=== PATIENT | female | born 1945 | race Caucasian/White ===

== ENCOUNTER 2017-05-30 06:26 | Inpatient (IN) ==
[~2017-05-30 06:26] MED LIST: ACETAMINOPHEN 500 MG TABLET PO ONE; FAMOTIDINE PB 20 MG/50 ML BAG IV ONE; LIDOCAINE 1% (10mg/ml) 2mL INJ PF SDV ID ONE; METOCLOPRAMIDE 10mg/2ml INJECTION IVP ONE; NOZIN NASAL SWAB NAS ONE; ONDANSETRON 4 MG/2 ML INJECTION IVP ONE
--- OUTSIDE RECORDS SUMMARY | 2017-05-30 06:37 | External Medical Summary ---
:1945 Author Organization [employer] Care Team Providers Name Role Phone Erwin Baez Provider Role Unavailable Allergies, Adverse Reactions, Alerts Substance Reaction Event Type N.K.D.A. 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 Problem Dyspnea on exertion 786.09 Active Problem Fatigue 780.79 Active Problem S/P Pacemaker Placement - Dual V45.01 Active Assessment CAD 414.01 Active Problem Atrial fibrillation 427.31 Active Assessment Atrial fibrillation 427.31 Active Assessment S/P Pacemaker Placement - Dual V45.01 Active Problem CAD 414.01 Active Problem Diabetes Mellitus, Type II, 250.00 Active Controlled Problem Palpitations 785.1 Active Problem Hypertension 401.9 Active Problem Dyslipidemia 272.4 Active Assessment Diabetes Mellitus, Type II, 250.00 Active Controlled Assessment Dyslipidemia 272.4 Active Assessment Family history of stroke V17.1 Active (cerebrovascular) Assessment Family history of ischemic heart V17.3 Active disease Problem Dizziness 780.4 Active Problem Chest pain 786.50 Active Assessment Hypertension 401.9 Active Problem Family history of stroke V17.1 Active (cerebrovascular) Assessment 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 Problem Family history of ischemic heart V17.3 Active disease Medications Medication Code Code Instructions Start End Date Status D[place] [address]-92 20 MG Orally qd 1 cap 11-01 Calcium + D NDC 77103-61 Orally bid 1 tab 56-52 Vitamin C NDC 21829-51 100 MG Orally qd 1 tab 54-01 Warfarin Sodium NDC 12719-81 5 MG Orally qd as dir 05-01 GlipiZIDE NDC 38361-98 5 MG Orally qd 1 tab 49-00 Sertraline HCl NDC 74075-63 100 MG Orally qd 1 tablet 80-05 Aspirin NDC 19068-05 81 MG Orally qd 1 tab 16-78 [place] [address]-38 20 MG Orally qd 1 tab 68-01 [place] [address]-88 40 MG Orally qd 1 tab Calcium 21-05 Sotalol HCl NDC 91272-49 160 MG Orally 1 tab 62-01 bid Metformin HCl NDC 37301-55 500 MG Orally 2 tab 48-01 bid Magnesium NDC 04569-73 400 MG Orally 1 tab 576 bid Cartia XT NDC 46074-21 240 MG Orally 1 capsule 29-90 Once a day Procedures Procedure Coding System Code Date Office Visit, Est Pt., Level 3 CPT-4 39931 January 07, 2015 Ofc Program PM Dual, Device Company CPT-4 91572 January 07, 2015 Vital Signs Date/Time: January 07, 2015 BMI 35.15 Index Weight 217.8 lbs Height 5 ft 6 in in Cardiac Monitoring Heart Rate 81 /min Oximetry 98 % Blood Pressure Diastolic 70 mm Hg Blood Pressure Systolic 114 mm Hg Results No Known Results Summary Purpose [employer] Submission
--- OUTSIDE RECORDS SUMMARY | 2017-05-30 06:37 | External Medical Summary ---
:1945 Author Organization [employer] Care Team Providers Name Role Phone Erwin Baez Provider Role Unavailable Allergies No Known Allergies Problems Problem Type Condition Code Onset Dates Condition Status Problem Hypertension 401.9 Active Problem S/P Pacemaker Placement - Dual V45.01 Active Problem Atrial fibrillation 427.31 Active Problem Dyslipidemia E78.5 Active Problem Episodic atrial fibrillation I48.0 Active Problem Hypertension I10 Active Problem S/P cardiac pacemaker procedure Z95.0 Active Problem CAD 414.01 Active Problem Elian-tachy syndrome I49.5 Active Problem Dizziness R42 Active Problem Family history of stroke V17.1 Active (cerebrovascular) Problem Family history of ischemic heart V17.3 Active disease Problem Dizziness 780.4 Active Problem Chest pain 786.50 Active Problem Dyspnea on exertion 786.09 Active Problem Palpitations 785.1 Active Problem 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
--- OUTSIDE RECORDS SUMMARY | 2017-05-30 06:37 | External Medical Summary ---
:1945 Author Organization [facility]. Summary purpose CCDA Sent to [facility] Chief Complaint and Reason for Visit Admit Diagnosis 1 715.15 Problem list No authorized problems tracked for continuity of care are available for this visit. Encounters No authorized problems tracked for encounter diagnoses are available for this visit. Medications No medications recorded for this patient visit Allergies, adverse reactions, alerts Allergen Category Ingredient Status Reaction Severity Onset No Known Drug No Known Drug No Known Drug Active Allergy Allergy Allergy Immunizations No immunizations recorded for this patient visit Relevant diagnostic tests and/or laboratory data No authorized results are available for this patient visit History of procedures No procedures recorded for this patient visit. Functional status No functional or cognitive status observations are available for this visit. Vital signs No authorized vital signs are available for this visit. Social history No Social History or smoking status observations were recorded for this visit. ( Unknown if ever smoked.) Treatment Plan No treatment plan text is available for this visit. Hospital discharge instructions No discharge instruction text is available for this visit.
--- OUTSIDE RECORDS SUMMARY | 2017-05-30 06:38 | External Medical Summary | Continuity of Care Document ---
:1945 Author Organization [facility] Allergies Active Description Code Type Severity Reaction Onset Reported/ Identified Relationship Clinical to Patient Status Yes No Known 28457 ND N/A N/A 06/05/2012 Drug Allergy 590 Medications Problems Date Dx Attending Type Code Diagnosis Diagnosed By Coded 07/07/2010 D 427.31 ATRIAL FIBRILLATION 10/06/2010 D 250.00 DM2/NOS UNCOMP NSU 10/06/2010 D 401.1 BENIGN HYPERTENSION 10/06/2010 D 427.31 ATRIAL FIBRILLATION 03/23/2011 D 272.0 PURE HYPERCHOLESTEROLEM 05/11/2011 D 272.0 PURE HYPERCHOLESTEROLEM 11/30/2011 D 427.31 ATRIAL FIBRILLATION 06/06/2012 D 174.9 MALIGN NEOPL BREAST NOS 06/06/2012 D 250.00 DM2/NOS UNCOMP NSU 06/06/2012 D 401.9 HYPERTENSION NOS 06/06/2012 D 427.31 ATRIAL FIBRILLATION 06/19/2012 D 785.1 PALPITATIONS 07/05/2012 D 427.31 ATRIAL FIBRILLATION 07/05/2012 D E942.1 ADV EFF CARDIOTONICS 07/14/2012 D 250.00 DM2/NOS UNCOMP NSU 07/14/2012 D 272.0 PURE HYPERCHOLESTEROLEM 07/14/2012 D 401.9 HYPERTENSION NOS 07/14/2012 D 427.81 SINOATRIAL NODE DYSFUNCT 07/14/2012 D 427.89 CARDIAC DYSRHYTHMIAS NEC 07/14/2012 Sasha SOL, Erwin Sanchez 250.00 DIAB DEEPIKA WO COMPL, TYPE K II OR UNSPEC TYPE, NOT UN 07/14/2012 Sasha SOL, Erwin Sanchez 272.4 HYPERLIPIDEMIA NEC/NOS K 07/14/2012 Sasha SOL, Erwin Sanchez 401.9 HYPERTENSION NOS K 07/14/2012 Sasha SOL, Erwin Sanchez 427.81 SINOATRIAL NODE DYSFUNCT K 07/14/2012 Sasha SOL, Erwin Ames 427.89 CARDIAC DYSRHYTHMIAS NEC K 07/14/2012 Erwin Baez MD 593.9 RENAL URETERAL DIS NOS K 07/14/2012 Erwin Baez MD 786.50 CHEST PAIN NOS K 07/14/2012 Erwin Baez MD V03.82 PROPHYLACTIC VACC K AGAINST STREPTOCOCCUS PNEUMONIAE 07/14/2012 Erwin Baez MD V10.3 HX OF BREAST MALIGNANCY K 11/27/2012 ARGENTINA Walters 250.00 DM2/NOS UNCOMP NSU , LIZY R 09/01/2013 ARGENTINA Walters 790.6 ABN BLOOD CHEMISTRY NEC , LIZY Locke 09/10/2013 ARGENTINA Waltres 211.3 BENIGN NEOPLASM LG BOWEL RANDI SOL 09/10/2013 ARGENTINA Walters V76.51 SCREENING MAL OLIVIA COLON RANDI SOL 10/23/2013 ARGENTINA ESPINOZA D 427.31 ATRIAL FIBRILLATION LIZY SOL 11/24/2013 ARGENTINA Walters 427.31 ATRIAL FIBRILLATION LIZY SOL 05/12/2014 ARGENTINA Walters 427.31 ATRIAL FIBRILLATION LIZY SOL 06/02/2014 ARGENTINA Walters 427.31 ATRIAL FIBRILLATION LIZY SOL 12/09/2014 ARGENTINA Walters 401.9 HYPERTENSION NOS LIZY SOL 12/09/2014 ARGENTINA ESPINOZA D 790.6 ABN BLOOD CHEMISTRY NEC LIZY SOL 09/29/2015 ARGENTINA Walters M79.604 Pain in right leg LIZY SOL 09/29/2015 ARGENTINA Ames M79.605 Pain in left leg LIZY SOL 04/13/2016 ARGENTINA Walters I10 Essential (primary) LIZY SOL hypertension 04/13/2016 ARGENTINA Walters M25.852 Other specified joint LIZY SOL disorders, left hip 04/13/2016 ARGENTINA Walters Z01.818 Encounter for other LIZY SOL preprocedural examination 04/30/2016 Romeo LEIGH Z47.1 Aftercare following NANCY S joint replacement surgery 04/30/2016 Romeo LEIGH Z96.642 Presence of left NANCY S artificial hip joint 04/30/2016 YANET TAVERA MD M13.852 Other specified S arthritis, left hip 04/30/2016 YANET TAVERA MD M25.552 Pain in left hip S 04/30/2016 YANET TAVERA MD M62.81 Muscle weakness S (generalized) 04/30/2016 YANET TAVERA MD Z47.1 Aftercare following S joint replacement surgery 04/30/2016 YANET TAVERA MD Z96.642 Presence of left S artificial hip joint 05/01/2016 ARGENTINA Walters I10 Essential (primary) , LIZY Locke hypertension 05/01/2016 ARGENTINA Walters I48.2 Chronic atrial , LIZY Locke fibrillation 05/01/2016 ARGENTINA Walters R23.1 Pallor LIZY SOL 05/30/2016 YANET TAVERA MD M13.852 Other specified S arthritis, left hip 05/30/2016 YANET TAVERA MD M25.552 Pain in left hip S 05/30/2016 YANET TAVERA MD M62.81 Muscle weakness S (generalized) 05/30/2016 YANET TAVERA MD Z47.1 Aftercare following S joint replacement surgery 05/30/2016 YANET TAVERA MD Z96.642 Presence of left S artificial hip joint 06/30/2016 YANET TAVERA MD M13.852 Other specified S arthritis, left hip 06/30/2016 YANET TAVERA MD M25.552 Pain in left hip S 06/30/2016 YANET TAVERA MD M62.81 Muscle weakness S (generalized) 06/30/2016 YANET TAVERA MD Z47.1 Aftercare following S joint replacement surgery 06/30/2016 YANET TAVERA MD Z96.642 Presence of left S artificial hip joint 11/01/2016 ARGENTINA Walters D64.9 Anemia, unspecified , LIZY Locke 02/15/2017 ARGENTINA Walters E83.42 Hypomagnesemia LIZY SOL Procedures Code Description Performed By Performed On ASSAY OF ARGENTINA ESPINOZA MD, 07/07/2010 00977 DIGOXIN LIZY Locke ROUTINE ARGENTINA ESPINOZA MD, 10/06/2010 54114 VENIPUNCTURE LIZY ESPINOZA MD, 10/06/2010 41546 METABOLIC PANEL TOTAL CA LIZY R ASSAY OF ARGENTINA ESPINOZA MD, 10/06/2010 46586 DIGOXIN LIZY R ARG[place] ESPINOZA MD, 10/06/2010 64558 GLYCOSYLATED HEMOGLOBIN TEST LIZY R ARGENTINA ESPINOZA MD, 10/06/2010 50534 PROTHROMBIN TIME LIZY R HEPATIC ARGENTINA ESPINOZA MD, 03/23/2011 02505 FUNCTION PANEL LIZY R HEPATIC ARGENTINA ESPINOZA MD, 05/11/2011 98251 FUNCTION PANEL LIZY R ARGENTINA ESPINOZA MD, 11/30/2011 14108 METABOLIC PANEL TOTAL CA LIZY R ASSAY OF ARGENTINA ESPINOZA MD, 11/30/2011 08136 DIGOXIN SERGIO VALDES MD 06/05/2012 55731 COMPREHEN METABOLIC PANEL ASSAY OF SERGIO ARANDA MD 06/05/2012 59913 DIGOXIN SERGIO ARANDA MD 06/05/2012 64887 CREATINE, MB FRACTION ASSAY ARGENTINA ESPINOZA MD, 06/05/2012 51811 THYROID STIM HORMONE LIZY R ASSAY OF SERGIO ARANDA MD 06/05/2012 96655 TROPONIN, QUANT COMPLETE SERGIO ARANDA MD 06/05/2012 35046 CBC, AUTOMATED SERGIO ARANDA MD 06/05/2012 36771 PROTHROMBIN TIME SERGIO ARANDA MD 06/05/2012 38001 ELECTROCARDIOGRAM, TRACING ARGENTINA ESPINOZA MD, 06/05/2012 66862 EMERGENCY DEPT VISIT [facility] ARGENTINA ESPINOZA MD, 06/05/2012 G0378 OBSERVATION PER HR LIZY R ASSAY OF ARGENTINA ESPINOZA MD, 06/06/2012 12299 TROPONIN, QUANT LIZY R BRUNILDA ADAMS, 06/19/2012 58160 METABOLIC PANEL TOTAL CA LUDY ASSAY OF BRUNILDA ADAMS, 06/19/2012 44882 DIGOXIN LUDY ASSAY OF BRUNILDA ADAMS, 06/19/2012 10623 FREE THYROXINE LUDY ASSAY BRUNILDA ADAMS, 06/19/2012 18387 THYROID STIM HORMONE LUDY ROUTINE LISANDRO MERRITT N 07/04/2012 72404 VENIPUNCTURE LISANDRO MERRITT 07/04/2012 83632 COMPREHEN METABOLIC PANEL ASSAY OF ERNESTO ADAMS LISANDRO N 07/04/2012 75595 DIGOXIN ASSAY OF ERNESTO ADAMS LISANDRO N 07/04/2012 69901 MAGNESIUM ASSAY ERNESTO ADAMS LISANDRO N 07/04/2012 22445 THYROID STIM HORMONE ASSAY OF ERNESTO PA, LISANDRO N 07/04/2012 05315 TROPONIN, QUANT COMPLETE ERNESTO PA, LISANDRO N 07/04/2012 25334 CBC, AUTOMATED ERNESTO ADAMS LISANDRO N 07/04/2012 55930 PROTHROMBIN TIME ERNESTO ADAMS LISANDRO N 07/04/2012 02458 ELECTROCARDIOGRAM, TRACING ARGENTINA ESPINOZA MD, 07/04/2012 10031 EMERGENCY DEPT VISIT [facility] ARGENTINA ESPINOZA MD, 07/04/2012 G0378 OBSERVATION PER HR RANDI ESPINOZA MD, 07/05/2012 23843 METABOLIC PANEL TOTAL CA RANDI D ASSAY OF ARGENTINA ESPINOZA MD, 07/05/2012 71945 DIGOXIN RANDI D ASSAY OF ARGENTINA ESPINOZA MD, 07/05/2012 90068 TOTAL THYROXINE RANDI D ASSAY, ARGENTINA ESPINOZA MD, 07/05/2012 52972 TRIIODOTHYRONINE (T3) RANDI D ASSAY OF ARGENTINA ESPINOZA MD, 07/05/2012 32709 TROPONIN, QUANT [facility] ARGENTINA ESPINOZA MD, 07/05/2012 40991 ELECTROCARDIOGRAM, TRACING DALE Romeo ESPINOZA MD, 07/14/2012 61438 EMERGENCY DEPT VISIT LIZY Locke LEFT Erwin Baez MD 07/14/2012 37.22 HEART CARDIAC CATH INITIAL Erwin Baez MD 07/14/2012 37.72 INSERT TRANS LEADS INTO ATRIUM VENTRICLE Erwin Neff MD 07/14/2012 37.83 INSERTION OF DUAL-CHAMBER DEVICE LT HEART Erwin Baez MD 07/14/2012 88.53 ANGIOCARDIOGRAM CORONAR Erwin Baez MD 07/14/2012 88.56 ARTERIOGR-2 CATH ASSAY ARGENTINA ESPINOZA MD, 11/27/2012 45857 THYROID STIM HORMONE LIZY R ASSAY OF ARGENTINA ESPINOZA MD, 09/01/2013 24712 MAGNESIUM LIZY R LESION ARGENTINA ESPINOZA MD, 09/10/2013 40038 REMOVE COLONOSCOPY RANDI Walters FENTANYL ARGENTINA ESPINOZA MD, 09/10/2013 J3010 CITRATE INJECITON RANDI ESPINOZA MD, 10/23/2013 54180 PROTHROMBIN TIME LIZY R ARGENTINA ESPINOZA MD, 11/24/2013 96322 PROTHROMBIN TIME LIZY R ARGENTINA ESPINOZA MD, 05/12/2014 03480 PROTHROMBIN TIME LIZY R ARGENTINA ESPINOZA MD, 06/02/2014 91847 PROTHROMBIN TIME LIZY R ARGENTINA ESPINOZA MD, 12/09/2014 22875 METABOLIC PANEL TOTAL CA LIZY R ASSAY OF ARGENTINA ESPINOZA MD, 12/09/2014 73167 MAGNESIUM LIZY R PT ARGENTINA ESPINOZA MD, 09/12/2015 20457 EVALUATION LIZY R ARGENTINA ESPINOZA MD, 09/12/2015 11397 ULTRASOUND THERAPY LIZY R ARGENTINA ESPINOZA MD, 09/12/2015 51452 THERAPEUTIC EXERCISES LIZY R ELEC ARGENTINA ESPINOZA MD, 09/12/2015 G0283 STIM OTHER THAN WOUND LIZY R ARGENTINA ESPINOZA MD, 04/13/2016 07982 COMPREHEN METABOLIC PANEL LIZY R COMPLETE ARGENTINA ESPINOZA MD, 04/13/2016 85802 CBC, AUTOMATED LIZY R ROUTINE NANCY LEIGH S 04/27/2016 39789 VENIPUNCTURE NANCY LEIGH S 04/27/2016 26594 PROTHROMBIN TIME YANET TAVERA MD 04/27/2016 46084 THER/PROPH/DIAG INJ, SC/IM ARGENTINA ESPINOZA MD, 04/27/2016 J1650 ENOXAPARIN NA INJ LIZY R ROUTINE NANCY LEIGH S 04/28/2016 75669 VENIPUNCTURE NANCY LEIGH S 04/28/2016 63408 PROTHROMBIN TIME YANET TAVERA MD 04/28/2016 29119 THER/PROPH/DIAG INJ, SC/IM YANET TAVERA MD 04/28/2016 J1650 ENOXAPARIN NA INJ PT YANET TAVERA MD 04/28/2016 06818 EVALUATION YANET TAVERA MD 04/28/2016 88234 THERAPEUTIC EXERCISES YANET TAVERA MD 04/29/2016 41586 THER/PROPH/DIAG INJ, SC/IM ARGENTINA ESPINOZA MD, 04/29/2016 J1650 ENOXAPARIN NA INJ LIZY Locke ROUTINE LIANG SOL, YANET Cerda 04/30/2016 61148 VENIPUNCTURE LIANG SOL, YANET Cerda 04/30/2016 72913 PROTHROMBIN TIME LIANG SOL, YANET Cerda 04/30/2016 18327 THER/PROPH/DIAG INJ, SC/IM ARGENTINA ESPINOZA MD, 04/30/2016 J1650 ENOXAPARIN NA INJ LIZY TAVERA MD, YANET Cerda 04/30/2016 52435 THERAPEUTIC EXERCISES MELANY TAVERA MD, YANET Cerda 04/30/2016 05235 TRAINING THERAPY ARGENTINA ESPINOZA MD, 05/01/2016 79032 METABOLIC PANEL TOTAL CA LIZY Locke COMPLETE ARGENTINA ESPINOZA MD, 05/01/2016 46759 CBC, AUTOMATED LIZY ESPINOZA MD, 05/01/2016 15999 PROTHROMBIN TIME LIZY TAVERA MD, YANET Cerda 05/07/2016 55077 THERAPEUTIC EXERCISES MELANY TAVERA MD, YANET Cerda 05/07/2016 15655 TRAINING THERAPY LIANG SOL, YANET Cerda 05/10/2016 59723 THERAPEUTIC EXERCISES MELANY TAVERA MD, YANET Cerda 05/10/2016 40629 TRAINING THERAPY LIANG SOL, YANET Cerda 05/15/2016 57056 THERAPEUTIC EXERCISES MELANY TAVERA MD, YANET Cerda 05/15/2016 47355 TRAINING THERAPY LIANG SOL, YANET Cerda 05/15/2016 01854 THERAPEUTIC ACTIVITIES LIANG SOL, YANET Cerda 05/17/2016 58903 THERAPEUTIC EXERCISES MELANY TAVERA MD, YANET Cerda 05/17/2016 96935 TRAINING THERAPY LIANG SOL, YANET Cerda 05/22/2016 73978 THERAPEUTIC EXERCISES MELANY TAVERA MD, YANET Cerda 05/22/2016 14110 TRAINING THERAPY LIANG SOL, YANET Cerda 05/22/2016 03278 THERAPEUTIC ACTIVITIES LIANG SOL, YANET Cerda 05/25/2016 76732 THERAPEUTIC EXERCISES MELANY TAVERA MD, YANET Cerda 05/25/2016 29324 TRAINING THERAPY LIANG SOL, YANET Cerda 05/25/2016 83234 THERAPEUTIC ACTIVITIES LIANG SOL, YANET Cerda 05/29/2016 65728 THERAPEUTIC EXERCISES MELANY TAVERA MD, YANET Cerda 05/29/2016 05842 TRAINING THERAPY LIANG SOL, YANET Cerda 05/29/2016 32147 THERAPEUTIC ACTIVITIES LIANG SOL, YANET Cerda 05/31/2016 45564 THERAPEUTIC EXERCISES MELANY TAVERA MD, YANET Cerda 05/31/2016 84683 TRAINING THERAPY LIANG SOL, YANET Cerda 06/05/2016 12763 THERAPEUTIC EXERCISES MELANY TAVERA MD, YANET Cerda 06/05/2016 73318 TRAINING THERAPY LIANG SOL, YANET Cerda 06/07/2016 15884 THERAPEUTIC EXERCISES MELANY TAVERA MD, YANET Cerda 06/07/2016 40697 TRAINING THERAPY LIANG SOL, YANET Cerda 06/12/2016 03153 THERAPEUTIC EXERCISES MELANY TAVERA MD, YANET Cerda 06/12/2016 98208 TRAINING THERAPY MELANY TAVERA MD, YANET Cerda 06/14/2016 02642 TRAINING THERAPY COMPLETE ARGENTINA ESPINOZA MD, 11/01/2016 77715 CBC, AUTOMATED LIZY Locke ASSAY OF ARGENTINA ESPINOZA MD, 02/15/2017 99444 MAGNESIUM LIZY Locke Encounters ACCT No. Visit Discharge Status Pt. Type Provider Facility Loc./Unit Complaint Date/Time [id number] 07/14/2012 07/18/2012 DIS Inpatient Sasha SOL, Seun [id number] [id number] 21:30:00 19:12:00 [facility] [id number] 05/14/2017 05/14/2017 DIS Outpatien ULLOM [place] LAB 14:00:00 14:00:00 shy Lawson MD, [facility] R [id number] 02/15/2017 02/15/2017 DIS Outpatien ULLOM [place] ALAB 11:02:00 11:02:00 shy Lawson MD, [facility] R [id number] 01/18/2017 01/18/2017 DIS Outpatien ULLOM [place] ALAB 12:53:00 12:53:00 shy Lawson MD, [facility] R [id number] 11/02/2016 11/02/2016 DIS Outpatien ULLOM [place] ALAB 07:38:00 07:38:00 shy Lawson MD, [facility] R [id number] 07/01/2016 07/31/2016 DIS Regina TAVERA MD, 8 00:01:00 23:59:00 shy Cerda [id number] 05/31/2016 06/30/2016 DIS Regina TAVERA MD, 0 00:01:00 23:59:00 t YANET Cerda [id number] 05/01/2016 05/30/2016 DIS Outpatien LIANG SOL, 2 00:01:00 23:59:00 t YANET Cerda [id number] 05/01/2016 05/01/2016 DIS Outpatien ULLOM [place] ALAB 13:13:00 13:13:00 shy Lawson MD, [facility] R [id number] 05/01/2016 05/01/2016 CAN Outpatien ZERGER [facility] [facility] 7 00:01:00 00:01:[facility] [id number] 04/28/2016 04/30/2016 DIS Outpatien LIANG SOL, 4 13:56:00 23:59:00 t YANET Cerda [id number] 04/27/2016 04/30/2016 DIS Outpatien ZERGER [facility] 9 09:24:00 23:59:00 [facility] [id number] 04/27/2016 04/27/2016 DIS Outpatien LIANG SOL, [place] ALAB 09:53:00 09:53:00 shy [facility] [id number] 04/13/2016 04/13/2016 DIS Outpatien ULLOM [place] ALAB 13:14:00 13:14:00 shy Lawson MD, [facility] R [id number] 09/30/2015 10/29/2015 DIS Outpatien ULLOM 0 00:01:00 23:59:00 shy ESPINOZA MD [facility] [id number] 09/12/2015 09/12/2015 CLS Outpatien ULLOM 2 14:59:00 23:59:59 [facility] [id number] 12/09/2014 12/09/2014 CLS Outpatien ULLOM [place] ALAB 13:04:00 23:59:59 shy Lawson MD, [facility] [id number] 06/02/2014 06/02/2014 DIS Outpatien ULLOM [place] ALAB 13:37:00 13:37:00 shy Lawson MD, [facility] R [id number] 05/12/2014 05/12/2014 DIS Outpatien ULLOM [place] ALAB 13:24:00 13:24:00 shy Lawson MD, [facility] R [id number] 11/24/2013 11/24/2013 DIS Outpatien ULLOM [place] ALAB 14:12:00 14:12:00 shy Lawson MD, [facility] R [id number] 10/23/2013 10/23/2013 DIS Outpatien ULLOM [place] ALAB 11:54:00 11:54:00 shy Lawson MD, [facility] R [id number] 09/10/2013 09/10/2013 DIS Outpatien ULLOM [place] ANDRÉS 06:45:00 09:40:00 shy Lawson MD, [facility] D [id number] 09/01/2013 09/01/2013 DIS Outpatien ULLOM [place] ALAB 13:42:00 13:42:00 shy Lawson MD, [facility] R [id number] 11/27/2012 11/27/2012 DIS Outpatien ULLOM [place] ALAB 12:51:00 12:51:00 shy Lawson MD, [facility] R [id number] 07/14/2012 Document 19:35:00 Registrat ion [id number] 07/04/2012 Document 20:16:00 Registrat ion [id number] 07/04/2012 Document 19:14:00 Registrat ion [id number] 06/19/2012 Document 14:48:00 Registrat ion [id number] 06/05/2012 Document 11:12:00 Registrat ion [id number] 06/05/2012 Document 10:03:00 Registrat ion [id number] 11/30/2011 Document 14:04:00 Registrat ion [id number] 05/11/2011 Document 09:27:00 Registrat ion [id number] 03/23/2011 Document 11:47:00 Registrat ion [id number] 10/06/2010 Document 12:18:00 Registrat ion [id number] 07/07/2010 Document 07:43:00 Registrat ion
[2017-05-30 06:49] VITALS: BMI 34.0
[2017-05-30] MEDS ORDERED: EPINEPHrine PF 0.25 MG, BUPIVACAINE 0.25% PF 30 ML, MORPHINE SULFATE 15 MG, KETOROLAC I... OPSITE ONE (08:00)
--- NOTE | 2017-05-30 08:19 | Anesthesia Preoperative Report ---
Anesthesia Preoperative Record - Date and Time Date: 05/30/17 Preoperative Diagnosis: Rt SAI M16.11 Proposed Procedure: Right SAI NPO Since Date: 05/29/17 NPO Since Time: 22:00 Allergies/Adverse Reactions: Allergies Allergy/AdvReac Type Severity Reaction Status Date / Time No Known Allergies Allergy Verified 05/30/17 07:03 - Vital Signs Vital Signs: Temperature 98.5 F 05/30/17 06:59 Pulse Rate 83 05/30/17 06:59 Respiratory Rate 16 05/30/17 06:59 Blood Pressure 132/68 05/30/17 06:59 Pulse Oximetry 97 05/30/17 06:59 Height and Weight: Height 5 ft 6 in Weight 95.8 kg Body Mass Index 34.0 - Medications Inpatient Medications: Current Medications Cefazolin Sodium (Kefzol) 2 g IVP PREOP ONE Stop: 05/30/17 08:31 Lactated Ringer's (Lactated Ringers) 1,000 mls @ 50 mls/hr IV .Q20H JENY Last Admin: 05/30/17 07:05 Dose: 50 mls/hr Sodium Chloride (Iv Flush) 10 - 80 ml IV PRN PRN PRN Reason: Flushing Tranexamic Acid (Cyklokapron) 1,000 mg TOP INTRAOP ONE Stop: 05/30/17 15:51 Home Medications: Home Medications Medication Instructions Recorded Confirmed Type Atorvastatin Calcium 40 mg PO HS #0 04/04/16 05/30/17 History Calcium Carbonate [Calcium] 1 tab PO BID #0 04/04/16 05/30/17 History Omeprazole 20 mg PO DAILY #0 04/04/16 05/30/17 History Sertraline HCl 100 mg PO DAILY #0 04/04/16 05/30/17 History Sotalol HCl [Sotalol] 160 mg PO BID #0 04/04/16 05/30/17 History Warfarin Sodium 4 mg PO 5XW #0 tab 04/04/16 05/29/17 History Warfarin Sodium 5 mg PO 2XW #0 04/04/16 05/29/17 History dilTIAZem HCl [Diltiazem 24Hr ER] 240 mg PO DAILY #0 04/04/16 05/30/17 History Acetaminophen [Tylenol] 1,000 mg PO TID PRN 04/19/17 05/30/17 History Amaryl (glimepiride) 1 mg tablet 1 mg PO QAM 04/19/17 05/30/17 History Lisinopril [Prinivil] 20 mg PO DAILY 05/27/17 05/30/17 History Is Patient on Beta Zack?: Yes Beta Zack Last Dose Date/Time: 05/30/17 - Medical History Respiratory: DENIES: Asthma, Bronchitis, Chronic Obstructive Pulmonary Disease (COPD), Dyspnea, Orthopnea, Pulmonary Embolism, Pneumonia, Upper Respiratory Infection, Pulmonary Edema, Sleep Apnea, Tuberculosis, Other Cardiovascular: Reports: Abnormal EKG (AFib/SSS), Arrhythmia, Coronary Artery Disease, Hypertension, High Cholesterol DENIES: Angina, Congestive Heart Failure, Heart Murmur, Hypotension, Myocardial Infarction, Rheumatic Fever, Valvular Heart Disease, Other Gastrointestional: Reports: Gastroesophageal Reflux Disease DENIES: Obstructive Bowel, Hepatitis, Cirrhosis, Nausea or Vomiting Present, Gastrointestinal Bleeding, Hiatal Hernia, Ulcer, Morbid Obesity, Other Neuro/Musculoskeletal: Reports: Depression, Other (osteopenia) Denies: HX.MS.OSAR, Back Problems, Cerebrovascular Accident, Headaches, Loss of Consciousness, Muscle Weakness, Neuromuscular Disorder, Paralysis, Paresthesia, Syncope, Seizures Renal/Endocrine: Reports: Diabetes Mellitus Type 2 DENIES: Diabetes Mellitus Type 1, Renal Failure, Dialysis, Thyroid Disease, Weight Loss, Weight Gain, Other Other History: Reports: Chemotherapy (2003), Cancer (left breast) - Surgical History HEENT Surgeries: Reports: Eye Surgery (Cat. ext with IOL implants-OU) Cardiac Surgeries/Treatments: Reports: Cardiac Catheterization, Pacemaker, Other (Cardiac ablation) GI Surgery/Treatments: Reports: Colonoscopy (polyps) Musculoskeletal Surgery/Tx: Reports: Total Hip Replacement (Lt SAI 2015) Reproductive Surgery/Treatment: Reports: Mastectomy (left modified radical) Anesthesia Reactions: None Hx Family Anesthesia Reaction: No History of Motion Sickness: No - Social History Smoking Status: Never smoker Substance Use Type: does not use Alcohol Intake: current Alcohol Intake Frequency: holidays/special occasions only - Pertinent Findings Laboratory: CBC and BMP 05/30/17 06:58 05/30/17 06:58 BMP 05/30/17 06:58 Sodium 143 Potassium 4.2 Chloride 106 Carbon Dioxide 21 L BUN 22.0 H Creatinine 1.1 Glucose 169 H Calcium 9.4 Paced: 100% - Physical Exam Respiratory Exam: Present: lungs clear, bilateral breath sounds equal Cardiovascular Exam: Present: regular rate and rhythm, no murmur - Airway Assessment Mallampati Score: I TMD: 3 Fingerbreadths Neck Extension: good Overall Assessment: no airway concerns - ASA ASA Score: 3 - Plan Anesthesia: General Inhalation Gases - Discussion Discussion: Discussed risks/options/alternatives of anesthesia and questions answered. Patient consents. Nursing pain assessment noted. Present for Discussion: spouse Attestation Statement: Prior to the delivery of any anesthetic medication, I examined the patient, developed the plan, obtained the patient's consent and discussed the risk and benefits of the procedure with the patient/guardian. - Additional Information Seen by Anesthesia: Yes
[2017-05-30] MEDS ORDERED: CEFAZOLIN 1 G INJECTION IVP ONE (08:30)
[2017-05-30] MEDS ORDERED: ANESTHESIA MIXTURE 50 ML IV ONE (08:45)
[2017-05-30] MEDS ORDERED: ROCURONIUM 50 MG/5 ML INJECTION IVP ONE (08:55)
[2017-05-30] MEDS ORDERED: PROPOFOL 20 ML ONE (08:55)
[2017-05-30] MEDS ORDERED: FentaNYL 100 MCG/2 ML INJECTION ONE (08:55)
[2017-05-30] MEDS ORDERED: LIDOCAINE VISCOUS 2% ORAL LIQUID 15ml ONE (09:03)
[2017-05-30] MEDS ORDERED: VANCOMYCIN 1,000 MG INJECTION ONE (09:29)
[2017-05-30] MEDS ORDERED: SALINE FLUSH 10ml SYRINGE ONE (09:35)
[2017-05-30] MEDS ORDERED: PHENYLEPHRINE INJ 10 MG/ML VIAL IV ONE (09:35)
[2017-05-30] MEDS ORDERED: VANCOMYCIN 1,000 MG INJECTION IAR ONE (10:00)
--- NOTE | 2017-05-30 10:33 | Operative Note ---
- Procedure Preoperative Diagnosis: Right hip primary degenerative joint disease Postoperative Diagnosis: Same as preoperative diagnosis. Surgeon: Ahmet Giraldo MD Adult Education Manager: Vernon Green Complications: None. Anesthesia: Spinal. Estimated Blood Loss: See Anesthesia Record. Fluids: Please see Anesthesia Record. Description of Procedure: Mrs. Ahumada and her right hip were identified and marked in the preoperative holding area. She was brought back to the operating suite and general anesthesia was administered. She was then placed in a lateral decubitus position with her right hip up. The right lower extremity was prepped and draped in my normal sterile fashion. Timeout was performed. The [employer] robotic arm was used to assist with the surgery. A pelvic array was placed into the iliac crest through three 1 cm incisions. A direct superior approach was utilized. An approximately 15 cm incision was made in the skin and dissection carried down to the muscle fascia which was then split in line with skin incision. Charnley retractor was utilized. A checkpoint was placed in the greater trochanter. The short external rotators were identified and tagged and detached. A capsulotomy was performed and the hip dislocated. A femoral neck osteotomy was performed at the pre-templated level measuring down from the femoral head 56 mm. The head was removed and acetabulum exposed. Labrum was removed. The acetabulum was then registered with the robot. The robotic arm was then used to ream with a 47 reamer. The robot then was again used to place a 48 Trident cup in 40 of tilt and 20 of anteversion. A liner was then placed. The proximal femur was exposed and prepared with a cookie cutter followed by reaming and broaching to a size 5. We trialed with a 0 head. After thorough irrigation a final Accolade 2 size 5 stem with 127 neck was placed. Leg length and offset were checked with the robot and were good. We lengthened her by 4 mm as templated which made her 1 mm shorter than the left leg. A final standard ceramic head was placed and the hip reduced. Betadine solution was used to irrigate throughout the case. It was followed by normal saline irrigation. Joint cocktail was injected throughout soft tissue. The capsulotomy was repaired with Ethibond. Short external rotators were also repaired with Ethibond. 1 g of TXA was allowed to sit in the wound for 5 minutes and then suctioned out. 1 g of vancomycin powder was placed into the wound. The muscle fascia was then repaired with #1 Vicryl. I then left my ophthalmic surgical assistant to close the subcutaneous tissue with 2-0 Vicryl followed by running 4-0 Monocryl skin followed by Dermabond and a sterile dressing. The patient with any placed back into supine position and taken to recovery room in the care of anesthesia.
[2017-05-30] MEDS ORDERED: SUGAMMADEX 200mg/2ml INJECTION IVP ONE (10:59)
[2017-05-30] MEDS ORDERED: HYDROMORPHONE 2 MG/ML INJECTION IVP PRN (11:30)
[2017-05-30] MEDS ORDERED: DiphenhydrAMINE 50 MG/ML INJECTION IVP PRN (12:01)
[2017-05-30] MEDS ORDERED: WARFARIN - PHARMACY CONSULT MC ONE (12:01)
[2017-05-30] MEDS ORDERED: ONDANSETRON 4 MG/2 ML INJECTION IVP PRN (12:01)
[2017-05-30] MEDS ORDERED: DiphenhydrAMINE 25 MG CAPSULE PO PRN (12:01)
[2017-05-30] MEDS ORDERED: LORazepam 1 MG TABLET PO PRN (12:01)
[2017-05-30] MEDS ORDERED: NOZIN NASAL SWAB NAS ONE (12:01)
[2017-05-30] MEDS: ACETAMINOPHEN 325 MG TABLET PO SCH ×3 (12:22→22:19)
[2017-05-30] MEDS: NS 1,000 ML IV SCH (12:23)
--- NOTE | 2017-05-30 12:23 | XRay Report ---
Indication: postoperative image PROCEDURE: XR pelvis w/ 1 view RT hip: Encounter: Initial Comparison: April 19, 2017 Findings: Postoperative changes of right total hip replacement are seen. There is expected postoperative subcutaneous gas. No evidence of hardware failure or acute fracture. No retained radiopaque surgical instruments or sponges seen. Existing left hip prosthesis appears stable and intact. Impression: New right total hip prosthesis without evidence of immediate complication. .
--- NOTE | 2017-05-30 13:44 | Pharmacy Consult ---
Pharmacy Consult-Warfarin - Laboratory Information 05/30/17 06:58 INR 1.09 - Consult Information 72 y.o. F postop ortho surgery with history of a. fib and chronic anti- coagulation with warfarin. Warfarin per pharmacy protocol ordered post op. reported home warfarin dose= 5 mg po 2 days a week and 4 mg po 5 days a week. Will give warfarin 5 mg po today. Pharmacy will monitor and adjust as needed. Thank you, Zahraa Dyson [facility]
[2017-05-30] MEDS ORDERED: WARFARIN 5 MG TABLET PO ONE (15:00)
[2017-05-30] MEDS: Oxycodone *IR* 5 MG TABLET PO PRN ×2 (15:28→22:23)
[2017-05-30] MEDS: NOZIN NASAL SWAB NAS SCH ×2 (15:29→22:21)
[2017-05-30] MEDS ORDERED: SALINE FLUSH 10ml SYRINGE IV PRN (15:50)
[2017-05-30] MEDS ORDERED: TRANEXAMIC ACID 1,000mg/10ml INJECTION TOP ONE (15:50)
[2017-05-30] MEDS ORDERED: LR 1,000 ML IV SCH (17:00)
[2017-05-30] MEDS: CEFAZOLIN 2 G in NS 100 ML IV SCH (17:50)
[2017-05-30] MEDS ORDERED: ATORVASTATIN 40 MG TABLET PO SCH (21:00)
[2017-05-30] MEDS ORDERED: ENOXAPARIN 40 MG/0.4 ML INJECTION SQ SCH (21:00)
[2017-05-30] MEDS ORDERED: SENNOSIDES 8.6 MG TABLET PO SCH (21:00)
[2017-05-30] MEDS: SOTALOL 80 MG TABLET PO SCH (22:20)
[2017-05-30] MEDS: DOCUSATE SODIUM 100 MG CAPSULE PO SCH (22:20)
[2017-05-30] MEDS: INSULIN ASPART 100unit/ml INJECTION SQ PRN (22:35)
[2017-05-31] MEDS: NS 1,000 ML IV SCH (01:09)
[2017-05-31] MEDS: CEFAZOLIN 2 G in NS 100 ML IV SCH (01:11)
[2017-05-31] MEDS: Oxycodone *IR* 5 MG TABLET PO PRN ×2 (02:16→09:09)
[2017-05-31] MEDS: NOZIN NASAL SWAB NAS SCH ×2 (06:03→14:57)
[2017-05-31] MEDS: INSULIN ASPART 100unit/ml INJECTION SQ PRN ×2 (06:13→10:54)
[2017-05-31] MEDS ORDERED: OMEPRAZOLE 20 MG CAPSULE PO SCH (06:30)
[2017-05-31 08:35] VITALS: RESP 18; O2SAT 95
--- NOTE | 2017-05-31 08:46 | Orthopedic Progress Note ---
Date: Subjective/Severity of Illness: La is doing very well. She has been mobile with good tolerance. Pain is controlled. Her creat went up from 1.1 to 1.5 . BP 99/58 this AM. Glucometers 148-208 range. SS insulin ordered. No other concerns. Denies CP or SOA. Orthopedic Objective PO Vital signs: Temperature 98.4 F 05/31/17 08:00 Pulse Rate 68 05/31/17 08:00 Respiratory Rate 18 05/31/17 08:00 Blood Pressure 110/58 05/31/17 08:00 Pulse Oximetry 95 05/31/17 08:00 Height and Weight: Height 5 ft 6 in Weight 211 lb 3.245 oz Body Mass Index 34.0 - Constitutional General Appearance: Present: alert, cooperative, no acute distress, well developed, well nourished - Respiratory Exam Present: non-labored - Cardiovascular Exam Present: pedal pulses intact. Absent: peripheral edema - Extremities Exam Extremities: Present: pulses intact, normal capillary refill. Absent: calf tenderness - Surgical Site Incision: Mepilex dressing intact, no drainage - Integumentary Exam Present: pink, warm, dry - Neurological Exam Present: no deficits - Psychiatric Exam Present: alert, normal affect - Labs Result Diagrams: 05/31/17 04:23 05/31/17 04:23 Abnormal lab results 05/31/17 05/31/17 Range/Units 04:23 04:23 Hgb 11.0 L D (12-16) GM/DL Hct 35.4 L D (36-46) % Chloride 110 H (98-107) MEQ/L Carbon Dioxide 21 L (22-30) MEQ/L BUN 33.0 H D (7-17) MG/DL Creatinine 1.5 H D (0.7-1.2) MG/DL Glucose 155 H (65-110) MG/DL Calculated Osmolality 285 H (261-280) MOSM/KG H & H 05/30/17 05/31/17 Range/Units 06:58 04:23 Hgb 13.6 11.0 L D (12-16) GM/DL Hct 41.9 35.4 L D (36-46) % Coagulation 05/30/17 05/31/17 Range/Units 06:58 04:23 INR 1.09 1.12 (0.99-1.21) Orthopedic Assessment and Plan (1) Primary osteoarthritis of right hip Status: Acute Assessment and Plan: Rt SAI 05/30/[address] Giraldo. Doing well. Hx of A Fib with rate currently controlled. Resume home Coumadin dose. Dr Sanford to manage INRs and pt will get Lovenox in [place]. SCDs in place. Creat increased 0.4 , will add IV fluid bolus and hold Prinivil. Recheck labs at noon. She did this in March with her last SAI. Work with PT / OT. CM for discharge planning. (2) Diabetes Status: Chronic Assessment and Plan: Resume normal meds. Monitor. SS insulin in place PRN. Hospital Course Summary Disclaimer: The visit summary below is not to be considered part of the above Progress Note.
[2017-05-31] MEDS ORDERED: POLYETHYL GLYCOL 3350 17gm PACKET PO SCH (09:00)
[2017-05-31] MEDS ORDERED: LISINOPRIL 20 MG TABLET PO SCH (09:00)
[2017-05-31] MEDS ORDERED: SERTRALINE 100 MG TABLET PO SCH (09:00)
[2017-05-31] MEDS: ACETAMINOPHEN 325 MG TABLET PO SCH ×2 (09:09→12:42)
[2017-05-31] MEDS: SOTALOL 80 MG TABLET PO SCH (09:10)
[2017-05-31] MEDS: DOCUSATE SODIUM 100 MG CAPSULE PO SCH (09:12)
[2017-05-31] MEDS ORDERED: SENNOSIDES 8.6 MG TABLET PO PRN (10:59)
[2017-05-31 11:53] VITALS: TEMP 99.2
[2017-05-31] MEDS ORDERED: WARFARIN 5 MG TABLET PO SCH (12:00)
[2017-05-31 12:47] VITALS: BP 115/66; PULSE 72
--- NOTE | 2017-05-31 13:51 | Discharge Summary ---
Orthopedic Discharge Info Date of admission: 05/30/17 06:26 Primary care physician: Lizy Garcia MD Attending Physician: Eyad Giraldo MD Consults: 05/30/17 06:45 Consult to Anesthesiology [CONS] Routine Reason For Exam: Preoperative Assessment 05/30/17 12:01 Case Management Consult [CONS] Routine Reason For Exam: Discharge Planning DME-Walker [CONS] Routine Height: 5 ft 6 in Weight: 211 lb 3.245 oz Total Joint Outpatient Therapy [CONS] Routine Comment: Remove dressing in 2 weeks - Discharge Diagnosis (1) Diabetes Status: Chronic (2) Primary osteoarthritis of right hip Status: Acute - Procedures Procedures: Procedures Rt SAI - Laboratory Result Diagrams: 05/31/17 04:23 05/31/17 12:22 Laboratory: Abnormal lab results 05/31/17 05/31/17 05/31/17 Range/Units 04:23 04:23 12:22 Hgb 11.0 L D (12-16) GM/DL Hct 35.4 L D (36-46) % Chloride 110 H 113 H (98-107) MEQ/L Carbon Dioxide 21 L 20 L (22-30) MEQ/L BUN 33.0 H D 32.0 H (7-17) MG/DL Creatinine 1.5 H D 1.4 H D (0.7-1.2) MG/DL Glucose 155 H 147 H (65-110) MG/DL Calculated Osmolality 285 H 285 H (261-280) MOSM/KG Calcium 8.1 L (8.4-10.2) MG/DL H & H 05/30/17 05/31/17 Range/Units 06:58 04:23 Hgb 13.6 11.0 L D (12-16) GM/DL Hct 41.9 35.4 L D (36-46) % Coagulation 05/30/17 05/31/17 Range/Units 06:58 04:23 INR 1.09 1.12 (0.99-1.21) Orthopedic Discharge HPI - HPI Comments This patient was admitted for elective surgical tx of end stage degenerative joint disease that failed to respond to conservative treatment. Further details of this is found in the admission H&P. Orthopedic Hospital Course Hospital course: 05/31/17 13:34 After appropriate preoperative clearance and signing of operative consent, the patient was given IV antibiotics, according to orthopedic protocol. The patient was taken to the operating room and underwent elective joint arthroplasty. Following surgery, antibiotics were discontinued less than 24 hours according to joint protocol. Appropriate anticoagulants were initiated and SCDs added for DVT prevention. The dressing was clean, dry, and intact. Pain control was obtained via multimodal approach. Bowel motivation addressed with scheduled and PRN medications. Early mobilization was initiated through PT services. Discharge arrangements made by a collaborative effort between the patient and Case Management. Post op day one a .4 increase in creatine was noted. Her ABEL inhibitor was held and she was given fluid. Her labs were rechecked at noon and creatine had improved to a .3 increase. The patient was asymptomatic throughout. We decided to discharge while holding her ABEL inhibitor and follow up with a repeat BMP on Saturday06/03/17. Follow-up is scheduled in 2-3 weeks. Discharge instructions given by orthopedic providers and nursing staff at discharge. Discharge condition was good. Ongoing care required?: No Comments: Follow up BMP on 06/03/17 to follow BUN/Creat and decide when to restart ABEL inhibitor. Discharge Plan - Med Rec/Dispo Referrals/Follow Up: Vernon Green PA [Physician Physician Executive] - 06/26/17 11:00 am Adelsouvjuan luis Instructions: [facility] [place] Additional Instructions: [facility] BEGIN[facility] JUNE 01 FOR LOVENOX INJECTIONS. YOU WILL NEED TO GET AN INJECTION ONCE PER DAY FOR 5 DAYS. [facility], DR LIZY GARCIA'S OFFICE TWICE A WEEK (MONDAYS AND THURSDAYS) FOR INR LAB DRAW FOR FOUR WEEKS. PHONE [phone] Please draw a BMP on 06/03/17, send results to Dr. Giraldo's office fax [phone], and Dr. Garcia's office. Prescriptions: New Acetaminophen [Tylenol] 650 mg PO QID tab Enoxaparin Sodium [Lovenox] 40 mg SQ Q24H syringe Oxycodone *IR* [Roxicodone *Ir*] 5 - 15 mg PO Q3H PRN #60 tab PRN Reason: Breakthrough Pain PEG 3350 17gm PACKET [Miralax] 17 gm PO DAILY packet Continue Warfarin Sodium 5 mg PO 2XW #0 Warfarin Sodium 4 mg PO 5XW #0 tab Sotalol HCl [Sotalol] 160 mg PO BID #0 dilTIAZem HCl [Diltiazem 24Hr ER] 240 mg PO DAILY #0 Atorvastatin Calcium 40 mg PO HS #0 Omeprazole 20 mg PO DAILY #0 Sertraline HCl 100 mg PO DAILY #0 Calcium Carbonate [Calcium] 1 tab PO BID #0 Amaryl (glimepiride) 1 mg tablet 1 mg PO QAM Discontinued Acetaminophen [Tylenol] 1,000 mg PO TID PRN PRN Reason: Pain Lisinopril [Prinivil] 20 mg PO DAILY - Disposition 01 Discharged Home, Self-Care - Dismissal Complete Discharge Instructions are:: Complete
--- NOTE | 2017-05-31 15:51 | XRay Report ---
Indication: Abnormal sensation following SAI. PROCEDURE: XR pelvis w/ 1 view RT hip: Encounter: Initial Comparison: May 30, 2017 Findings: Bilateral total hip replacements again seen. No evidence of hardware loosening or failure. No change in positioning of the right acetabular component allowing for slight differences in obliquity between the two projections. No acute fracture or dislocation. Impression: Stable appearance of the right total hip prosthesis. .
[2017-06-01] MEDS ORDERED: BISACODYL 10 MG SUPPOSITORY RECTALLY SCH (20:00)
== END 2017-05-31 16:07 | disposition home or self-care (01) | DRG 470 ==
LOC: SRG 06:26
PROVIDERS: ADMIT Orthopaedic Surgery; ATTEND Orthopaedic Surgery